=== PATIENT | male | born 1985 | race Caucasian/White ===

== ENCOUNTER 2022-05-20 03:06 | Emergency (ER) | payer SELFPAY ==
[~2022-05-20] VITALS: Ht 182.9 cm; Wt 88.6 kg
[~2022-05-20 03:06] MED LIST: NORCO 325 MG-51 TAB PO
[2022-05-20 03:58] LABS: BASO # 0.02 K/mm3 (0.02-0.10); EOS # 0.23 K/mm3 (0.04-0.40); EOS % 2.4 % (0.0-4.0); HEMATOCRIT 52.2 % (42.0-52.0); HEMOGLOBIN 16.8 g/dL (13.5-18.0); LYMPH# 3.61 K/mm3 (1.50-4.00); MEAN CELL VOLUME 84 fl (78-100); MEAN CORPUSCULAR HEMOGLOBIN 27 pg (27-31); MEAN CORPUSCULAR HGB CONC 32 g/dL (33-37); MEAN PLATELET VOLUME 9.3 fl (7.4-10.4); MONO # 0.46 K/mm3 (0.20-0.80); NEU # 5.13 K/mm3 (1.40-6.50); PLATELET COUNT 353 K/mm3 (130-400); RED CELL DISTRIBUTION WIDTH 12.5 % (11.5-14.5); WHITE BLOOD COUNT 9.5 K/mm3 (4.8-10.8)
[2022-05-20 04:05] LABS: ALBUMIN 4.3 g/dL (3.5-5.0)
[2022-05-20 04:06] LABS: POTASSIUM 3.6 mmol/L (3.5-5.1)
[2022-05-20 04:07] LABS: CALCIUM 9.7 mg/dL (8.3-10.5)
[2022-05-20 04:08] LABS: TOTAL PROTEIN 7.3 g/dL (6.4-8.3)
[2022-05-20 04:10] LABS: TOTAL BILIRUBIN 0.4 mg/dL (0.2-1.2)
[2022-05-20] MEDS ORDERED: PEPCID 20MG TAB20 MG PO (06:01)
[2022-05-20] MEDS ORDERED: PREDNISONE20 M1 PO (06:01)
[2022-05-20] MEDS ORDERED: EPIPEN 2-PAK1 MG/ML MR (06:01)
[2022-05-20 07:00] VITALS: BP 127/80
== END 2022-05-20 07:00 | disposition home or self-care (01) ==
LOC: ED 03:06
PROVIDERS: Nurse Practitioner
DX: T78.3XXA Angioneurotic edema, initial encounter (principal); Z28.310 Unvaccinated for COVID-19
CPT/HCPCS: J0171; J2930; J3490; J7030